=== PATIENT | male | born 1955 | race Caucasian/White ===

== ENCOUNTER 2018-12-29 14:05 | Emergency (ER) | payer BC ==
[2018-12-29 14:15] VITALS: BP 135/81
--- NOTE | 2018-12-29 14:41 | UC ---
Lower Extremity/Ankle HPI - HPI Summary HPI Summary: Yesterday pt slipped off ladder and injured his L lower leg, more at calf area. He states he didn't really fall but feels like he pulled a tendon. walking makes it better, flexing his L foot make pain worse. able to walk but uncomfortable. - History of Current Complaint Chief Complaint: UCLowerExtremity Stated Complaint: L LEG PAIN Time Seen by Provider: 12/29/18 14:39 Hx Obtained From: Patient Pain Intensity: 4 Pain Scale Used: 0-10 Numeric - Allergies/Home Medications Allergies/Adverse Reactions: Allergies Allergy/AdvReac Type Severity Reaction Status Date / Time Beta-Blockers Allergy Intermediate Rash Verified 12/29/18 14:15 (Beta-Adrenergic Bloc metformin Allergy Intermediate Palpitation Verified 12/29/18 14:16 s heparin Allergy thrombocy Verified 12/29/18 14:16 Home Medications: Home Medications Aspirin 81 mg CHEW TAB* 162 mg PO DAILY WITH MEAL 12/29/18 [History Confirmed ] Atorvastatin* [Lipitor*] 240 mg PO 1700 12/29/18 [History Confirmed 12/29/18] Clopidogrel TAB* [Plavix TAB*] 75 mg PO DAILY 12/29/18 [History Confirmed ] Dulaglutide [Trulicity] 0.75 mg SQ DAILY WITH MEAL 12/29/18 [History Confirmed 12/29/18] Empaglifozin (NF) [Jardiance] 25 mg PO DAILY WITH MEAL 12/29/18 [History Confirmed 12/29/18] Ezetimibe [Zetia] 20 mg PO DAILY WITH MEAL 12/29/18 [History Confirmed 12/29/18] Metoprolol Succinate [Metoprolol Succinate ER] 25 mg PO DAILY WITH MEAL [History Confirmed 12/29/18] Nitroglycerin TAB 0.3 MG* 0.3 mg SL Q5M PRN 12/29/18 [History Confirmed 12/29/18 ] Tamsulosin HCl [Flomax] 0.4 mg PO DAILY WITH MEAL 12/29/18 [History Confirmed ] PMH/Surg Hx/FS Hx/Imm Hx Previously Healthy: Yes Cardiovascular History: Cardiac Disease, Hypertension - Surgical History Surgical History: Yes Surgery Procedure, Year, and Place: pacer/defib cardiac stent - Family History Known Family History: Positive: Non-Contributory - Social History Alcohol Use: None Substance Use Type: None Smoking Status (MU): Never Smoked Tobacco Review of Systems All Other Systems Reviewed And Are Negative: Yes Constitutional: Negative: Fever Skin: Negative: Bruising Neurovascular: Negative: Decreased Sensation, Decreased Pulses Musculoskeletal: Positive: Arthralgia - L leg, Calf Tenderness - Left. Negative : Decreased ROM, Edema, Myalgia Neurological: Negative: Weakness, Paresthesia, Numbness Physical Exam Triage Information Reviewed: Yes Appearance: Well-Appearing Vital Signs: Initial Vital Signs Temp 97.0 F 12/29/18 14:10 Pulse 65 12/29/18 14:10 Resp 18 12/29/18 14:10 BP 135/81 12/29/18 14:10 Pulse Ox 98 12/29/18 14:10 Vital Signs Reviewed: Yes Respiratory: Positive: No respiratory distress Cardiovascular: Positive: Pulses Normal - pedal L Musculoskeletal: Positive: Strength Intact - L leg, able to lift L leg w/ no issues., ROM Intact - L knee, L ankle., No Edema, Other: - No tenderness at L tibia Neurological: Positive: Alert Skin: Negative: Other - no bruising noted Lower Extremity Course/Dx - Course Course Of Treatment: L leg discomfort after mis-stepping on ladder. Xrays were normal and exam unremarkable. Plan is to have him massage area and ambulate as comfortable. vitals are good. - Differential Dx/Diagnosis Differential Diagnosis/HQI/PQRI: Sprain, Strain, Tendonitis, Tenosynovitis Provider Diagnosis: Left leg pain Discharge ED - Sign-Out/Discharge Documenting (check all that apply): Patient Departure All imaging exams completed and their final reports reviewed: Yes - Discharge Plan Condition: Good Disposition: HOME Patient Education Materials: Muscle Strain (ED) Referrals: Aung Lopez MD [Primary Care Provider] - Additional Instructions: If worsening please follow up with your pcp. - Billing Disposition and Condition Condition: GOOD Disposition: Home
== END 2018-12-29 15:23 | disposition home or self-care (01) ==
LOC: UCEAST 14:05
DX: M79.605 Pain in left leg (principal); I10 Essential (primary) hypertension; Z88.8 Allergy status to other drugs, medicaments and biological substances; Z79.82 Long term (current) use of aspirin; Z79.84 Long term (current) use of oral hypoglycemic drugs; Z79.899 Other long term (current) drug therapy; Z95.0 Presence of cardiac pacemaker; W11.XXXA Fall on and from ladder, initial encounter; Y92.9 Unspecified place or not applicable
CPT/HCPCS: 99201; G0463

== ENCOUNTER 2019-02-12 18:19 | Emergency (ER) | payer BC ==
--- NOTE | 2019-02-12 18:39 | ED ---
Dizziness - HPI Summary HPI Summary: Patient is a 63 y/o M presenting to the ED via EMS for a chief complaint of dizziness that began one hour HYBRID [employer]N [employer]ED[employer] and has since resolved. Patient is present with his . Patient was driving to a meeting on 02/12/19 when he began to feel dizziness, lightheadedness, and near syncope. He pulled over into a [facility] where his symptoms resolved after 4-5 seconds. For the last few days, the patient has had episodes of dizziness that last 4-5 seconds before resolving. He states the dizziness sometimes occurs after eating. He states he is able to go biking without problems. He is unsure if he has had palpitations. Patient denies chest pain, shortness of breath, nausea, vomiting, diarrhea, or blood in the stool. PMHx is significant for DM for which he previously took Metformin, HTN, and ventricular tachycardia. Patient has a [employer] pacemaker. He sees a tableau administrator at [facility]. Patient denies alcohol, tobacco, or drug use. Allergies noted. Medications reviewed. - History Of Current Complaint Stated Complaint: DIZZINESS PER EMS Time Seen by Provider: 02/12/19 18:21 Hx Obtained From: Patient Onset/Duration: Resolved Timing: Seconds Severity Initially: Moderate Severity Currently: Moderate Character: Lightheaded, Dizzy Aggravating Factor(s): Other - Eating Alleviating Factor(s): Nothing Associated Signs And Symptoms: Positive: Palpitations - Unsure, Other: - Positive dizziness, lightheadedness, near syncope.. Negative: Nausea, Vomiting , Diarrhea, Chest Pain, SOB, Blood In Stool - Allergies/Home Medications Allergies/Adverse Reactions: Allergies Allergy/AdvReac Type Severity Reaction Status Date / Time Beta-Blockers Allergy Intermediate Rash Verified 02/12/19 18:34 (Beta-Adrenergic Bloc metformin Allergy Intermediate Palpitation Verified 02/12/19 18:34 s heparin Allergy thrombocy Verified 02/12/19 18:34 PMH/Surg Hx/FS Hx/Imm Hx Previously Healthy: Yes Endocrine/Hematology History: Reports: Hx Diabetes - type II Denies: Hx Thyroid Disease Cardiovascular History: Reports: Hx Hypertension Denies: Hx Hypercholesterolemia Respiratory History: Denies: Hx Asthma, Hx Chronic Obstructive Pulmonary Disease (COPD) GI History: Denies: Hx Ulcer Sensory History: Denies: Hx Legally Blind, Hx Deafness Opthamlomology History: Denies: Hx Legally Blind EENT History: Denies: Hx Deafness - Surgical History Surgical History: Yes Surgery Procedure, Year, and Place: pacer/defib cardiac stent Infectious Disease History: Denies: Hx Hepatitis, Hx Human Immunodeficiency Virus (HIV), Traveled Outside the [place] in Last 30 Days - Family History Known Family History: Negative: Hypertension - Social History Occupation: Retired Lives: With Family Alcohol Use: None Hx Substance Use: No Substance Use Type: Reports: None Hx Tobacco Use: No Smoking Status (MU): Never Smoked Tobacco Review of Systems Negative: Chest Pain Negative: Shortness Of Breath Positive: Other - Negative blood in stool. Negative: Vomiting, Diarrhea, Nausea Neurological: Other - Positive dizziness, lightheadedness, and near syncope All Other Systems Reviewed And Are Negative: Yes Physical Exam - Summary Physical Exam Summary: Constitutional: Well-developed, Well-nourished, Alert. (-) Distressed Skin: Warm, Dry HENT: Normocephalic; Atraumatic Eyes: Conjunctiva normal Neck: Musculoskeletal ROM normal neck. (-) JVD, (-) Stridor, (-) Tracheal deviation Cardio: Rhythm regular, rate normal, Heart sounds normal; Intact distal pulses; Radial pulses are 2+ and symmetric. (-) Murmur. Frequent PVCs on the monitor. Pulmonary/Chest wall: Effort normal. (-) Respiratory distress, (-) Wheezes, (-) Rales Abd: Soft, (-) tenderness, (-) Distension, (-) Guarding, (-) Rebound Musculoskeletal: (-) Edema Lymph: (-) Cervical adenopathy Neuro: Alert, Oriented x3 Psych: Mood and affect Normal Triage Information Reviewed: Yes Vital Signs Reviewed: Yes Procedures - Sedation Patient Received Moderate/Deep Sedation with Procedure: No Diagnostics - Laboratory Result Diagrams: 02/12/19 19:12 02/12/19 19:12 Lab Statement: Any lab studies that have been ordered have been reviewed, and results considered in the medical decision making process. Dizzy Course/Dx - Course Course Of Treatment: Patient is here with periodic episodes of dizziness. Patient is overall well-appearing upon arrival. Patient had a normal neurologic exam and had an NIH stroke scale 0. Patient had his pacemaker interrogated which showed a couple episodes of nonsustained V. tach days prior but nothing today. Patient was paced out of these V. tach episodes and no defibrillation was occurred. Patient was already aware of this as well as his tableau administrator who called him today to let him know this happened. Patient's tableau administrator at that time wanted him to be seen as an outpatient. Patient did have positive orthostatic hypotension which could be the etiology of his symptoms. Patient is given IV fluids with mild improvement in symptoms. Patient had a negative workup from a blood panel perspective. Given the fact patient's tableau administrator was okay with outpatient follow-up, patient was discharged with cardiology follow-up at [facility].. - Diagnoses Provider Diagnoses: Pre-syncope, Non-sustained ventricular tachycardia Discharge ED - Sign-Out/Discharge Documenting (check all that apply): Patient Departure - Discharge - Discharge Plan Condition: Stable Disposition: HOME Patient Education Materials: Near Syncope (ED) Referrals: Aung Lopez MD [Primary Care Provider] - Aram Basilio MD [Medical Doctor] - Additional Instructions: CALL YOUR MARKETING DATABASE ANALYST IN THE MORNING TO SET UP AN APPOINTMENT IN THE NEXT 1-[address]. [address] OR EXERT YOURSELF UNTIL MEDICALLY CLEARED BY YOUR MARKETING DATABASE ANALYST. RETURN TO THE EMERGENCY DEPARTMENT IF YOU HAVE DIZZINESS, RACING HEART, CHEST PAIN, OR ANY OTHER CONCERNING SYMPTOMS. - Billing Disposition and Condition Condition: STABLE Disposition: Home - Attestation Statements Document Initiated by Karli: Yes Documenting Chipibe: Katharine Comer Provider For Whom Karli is Documenting (Include Credential): Remington Velásquez MD Scribe Attestation: Katharine Terry, scribed for Remington Velásquez MD on 02/15/19 at 0918. Scribe Documentation Reviewed: Yes Provider Attestation: The documentation as recorded by the Katharine varghese accurately reflects the service I personally performed and the decisions made by me, Remington Velásquez MD Status of Scribe Document: Viewed
[2019-02-12 19:23] LABS: ABS Eosinophils 0.1 10^3/ul (0-0.6); ABS Lymphocytes 1.4 10^3/ul (1.0-4.8); ABS Monocytes 0.6 10^3/ul (0-0.8); ABS Neutrophils 5.6 10^3/ul (1.5-7.7); Eosinophil % 1.7 %; Hematocrit 48 % (42-52); Hemoglobin 16.5 g/dL (14.0-18.0); Lymphocyte % 18.2 %; Mean Corpuscular HGB Conc 35 g/dL (31-36); Mean Corpuscular Hemoglobin 31 pg (27-31); Mean Corpuscular Volume 90 fL (80-94); Mean Platelet Volume 7.7 fL (7.4-10.4); Platelet Count 163 10^3/uL (150-450); Red Blood Count 5.29 10^6 /uL (4.18-5.48); Red Cell Distribution Width 13 % (10-15); White Blood Count 7.8 10^3/uL (3.5-10.8)
[2019-02-12] MEDS ORDERED: NS 0.9% 1000 ML** 1,000 ML IV ONE (19:30)
[2019-02-12 19:41] LABS: Albumin 4.2 g/dL (3.2-5.2); Albumin/Globulin Ratio 1.4 (1-3); BUN/Creatinine Ratio 15.6 (8-20); Calcium 9.2 mg/dL (8.6-10.3); EGFR African American 64.2 (>60); Potassium 3.6 mmol/L (3.5-5.0); Total Bilirubin 0.6 mg/dL (0.2-1.0); Total Protein 7.2 g/dL (6.4-8.9)
[2019-02-12 19:43] LABS: Troponin I 0.01 ng/mL (<0.03)
[2019-02-12 20:17] VITALS: BP 160/97
== END 2019-02-12 20:16 | disposition home or self-care (01) ==
LOC: ED 18:19
DX: R55 Syncope and collapse (principal); I47.2 Ventricular tachycardia; E11.9 Type 2 diabetes mellitus without complications; I10 Essential (primary) hypertension; Z95.810 Presence of automatic (implantable) cardiac defibrillator; Z95.5 Presence of coronary angioplasty implant and graft; Z88.8 Allergy status to other drugs, medicaments and biological substances
CPT/HCPCS: 36415; 80053; 83880; 84484; 85025; 96360; 99282